=== PATIENT | male | born 1970 | race Hispanic/Latino ===

== ENCOUNTER 2021-08-27 13:07 | Emergency (ER) | payer MEDICAID ==
[~2021-08-27] VITALS: Ht 124.5 cm; Wt 88.5 kg
[2021-08-27 14:17] VITALS: BP 199/102
[2021-08-27] MEDS ORDERED: IBUPROFEN 600 MG TABLET PO ONE (14:30)
== END 2021-08-27 15:28 | disposition home or self-care (01) ==
LOC: EDH 13:07
DX: M19.042 Primary osteoarthritis, left hand (principal); E11.9 Type 2 diabetes mellitus without complications; E78.00 Pure hypercholesterolemia, unspecified; I10 Essential (primary) hypertension; Z79.1 Long term (current) use of non-steroidal anti-inflammatories (NSAID)
CPT/HCPCS: 73130

== ENCOUNTER 2023-07-27 09:15 | Emergency (ER) | payer MEDICAID ==
[~2023-07-27] VITALS: Ht 147.3 cm; Wt 90.7 kg
[2023-07-27 09:19] VITALS: BP 220/117; PULSE 71; RESP 16; O2SAT 98
[2023-07-27 10:44] LABS: BASOPHILS # (AUTO) 0.02 K/uL (0.00-0.20); BASOPHILS % (AUTO) 0.4 % (0.0-5.0); EOSINOPHILS # (AUTO) 0.18 K/uL (0.00-0.70); EOSINOPHILS % (AUTO) 3.6 % (0.0-8.0); HEMATOCRIT 43.5 % (42-54); IMMATURE GRANULOCYTE ABSOLUTE 0.02 K/uL (0-1); LYMPHOCYTES # (AUTO) 1.4 K/uL (1.0-4.8); LYMPHOCYTES % (AUTO) 28.5 % (21.0-51.0); MEAN CORPUSCULAR HEMOGLOBIN 27.4 pg (27.0-33.0); MEAN CORPUSCULAR HGB CONC 32.2 g/dL (32.0-36.0); MEAN CORPUSCULAR VOLUME 85.1 fL (79-99); MONOCYTES # (AUTO) 0.3 K/uL (0.1-1.0); MONOCYTES % (AUTO) 6.3 % (3.0-13.0); NEUTROPHILS # (AUTO) 3.1 K/uL (1.8-7.7); NEUTROPHILS % (AUTO) 60.8 % (40.0-77.0); PLATELET COUNT (AUTO) 153 K/uL (130-400); RED BLOOD CELL COUNT(AUTO) 5.11 MIL/uL (4.50-6.20); RED CELL DISTRIBUTION WIDTH 13.2 % (11.0-15.5); WHITE BLOOD COUNT (AUTO) 5.1 K/uL (4.8-10.8)
[2023-07-27 10:56] LABS: APPEARANCE,URINE TURBID (CLEAR); BILIRUBIN,URINE NEGATIVE (NEGATIVE); COLOR,URINE YELLOW (YELLOW); GLUCOSE, URINE (UA) 500 mg/dL (NEGATIVE); KETONES,URINE NEGATIVE (NEGATIVE); LEUKOCYTE ESTERASE ,URINE 500 Leu/uL (NEGATIVE); NITRATE,URINE NEGATIVE (NEGATIVE); OCCULT BLOOD,URINE MODERATE (NEGATIVE); PH,URINE 6.5 (5.0-8.0); PROTEIN,URINE 600 mg/dL (NEGATIVE); UROBILINOGEN,URINE 0.2 mg/dL (0.2-1.0)
[2023-07-27 10:57] LABS: ALBUMIN 2.3 g/dL (3.5-5.0); BILIRUBIN,TOTAL 0.6 mg/dL (0.2-1.0); CREATININE 1.3 mg/dL (0.5-1.5); POTASSIUM 4.4 mmol/L (3.5-5.1); TOTAL PROTEIN, SERUM 6.3 g/dL (6.0-8.3)
[2023-07-27 10:58] LABS: ADD UA MICROSCOPIC YES
[2023-07-27 11:09] LABS: BACTERIA,URINE RARE /HPF (None Seen); MUCUS,URINE RARE LPF (None Seen); NON-SQUAMOUS EPITHELIAL CELL 1 /HPF (0-2); SQUAMOUS EPITHELIAL CELL,UR RARE /HPF (0-2); TRANSITIONAL EPI CELLS,URINE RARE /HPF (None Seen); WBC CLUMP FEW /HPF (0-1); WBC,URINE TNTC /HPF (0-1)
[2023-07-27] MEDS ORDERED: CEPH500B PO (11:33)
[2023-07-27] MEDS: KETOROLAC 60 MG VIAL (30MG/ML) IM ONE (11:36)
[2023-07-27] MEDS: CEPHALEXIN 500 MG CAPSULE PO ONE (11:49)
== END 2023-07-27 11:54 | disposition home or self-care (01) ==
LOC: EDH 09:15
DX: N39.0 Urinary tract infection, site not specified (principal); E86.0 Dehydration; E11.9 Type 2 diabetes mellitus without complications; E78.00 Pure hypercholesterolemia, unspecified; I10 Essential (primary) hypertension
CPT/HCPCS: 99283; 80053; 85025; 87077; 87088; 87186; 81001; 36415; J1885

== ENCOUNTER 2023-11-21 08:49 | Emergency (ER) | payer MEDICAID ==
[~2023-11-21] VITALS: Ht 147.3 cm; Wt 86.2 kg
[~2023-11-21 08:49] MED LIST: CEPH500B PO
[2023-11-21 09:21] LABS: BASOPHILS # (AUTO) 0.03 K/uL (0.00-0.20); BASOPHILS % (AUTO) 0.6 % (0.0-5.0); EOSINOPHILS # (AUTO) 0.12 K/uL (0.00-0.70); EOSINOPHILS % (AUTO) 2.3 % (0.0-8.0); HEMATOCRIT 46.2 % (42-54); IMMATURE GRANULOCYTE ABSOLUTE 0.02 K/uL (0-1); LYMPHOCYTES # (AUTO) 1.6 K/uL (1.0-4.8); LYMPHOCYTES % (AUTO) 30.1 % (21.0-51.0); MEAN CORPUSCULAR HEMOGLOBIN 27.3 pg (27.0-33.0); MEAN CORPUSCULAR HGB CONC 32.9 g/dL (32.0-36.0); MEAN CORPUSCULAR VOLUME 83.1 fL (79-99); MONOCYTES # (AUTO) 0.3 K/uL (0.1-1.0); MONOCYTES % (AUTO) 5.8 % (3.0-13.0); NEUTROPHILS # (AUTO) 3.2 K/uL (1.8-7.7); NEUTROPHILS % (AUTO) 60.8 % (40.0-77.0); PLATELET COUNT (AUTO) 175 K/uL (130-400); RED BLOOD CELL COUNT(AUTO) 5.56 MIL/uL (4.50-6.20); RED CELL DISTRIBUTION WIDTH 13.2 % (11.0-15.5); WHITE BLOOD COUNT (AUTO) 5.2 K/uL (4.8-10.8)
[2023-11-21 09:37] LABS: CREATININE 1.4 mg/dL (0.5-1.5); POTASSIUM 4.7 mmol/L (3.5-5.1)
[2023-11-21 09:41] LABS: ALBUMIN 2.4 g/dL (3.5-5.0); BILIRUBIN,TOTAL 0.7 mg/dL (0.2-1.0); TOTAL PROTEIN, SERUM 6.7 g/dL (6.0-8.3)
[2023-11-21 10:10] LABS: APPEARANCE,URINE CLEAR (CLEAR); BILIRUBIN,URINE NEGATIVE (NEGATIVE); COLOR,URINE YELLOW (YELLOW); GLUCOSE, URINE (UA) >=1000 mg/dL (NEGATIVE); KETONES,URINE 5 mg/dL (NEGATIVE); LEUKOCYTE ESTERASE ,URINE NEGATIVE Leu/uL (NEGATIVE); NITRATE,URINE NEGATIVE (NEGATIVE); OCCULT BLOOD,URINE MODERATE (NEGATIVE); PROTEIN,URINE 600 mg/dL (NEGATIVE); UROBILINOGEN,URINE 0.2 mg/dL (0.2-1.0)
[2023-11-21 10:11] LABS: ADD UA MICROSCOPIC YES
[2023-11-21 10:19] LABS: BACTERIA,URINE RARE /HPF (None Seen); MUCUS,URINE RARE LPF (None Seen); SQUAMOUS EPITHELIAL CELL,UR RARE /HPF (0-2)
[2023-11-21 11:18] VITALS: BP 157/84; PULSE 79; RESP 16; O2SAT 99
[2023-11-21] MEDS ORDERED: FAMO20TA8 PO (11:40)
== END 2023-11-21 11:50 | disposition home or self-care (01) ==
LOC: EDH 08:49
DX: K80.20 Calculus of gallbladder without cholecystitis without obstruction (principal); E11.9 Type 2 diabetes mellitus without complications; E78.00 Pure hypercholesterolemia, unspecified; I10 Essential (primary) hypertension
CPT/HCPCS: 36415; 74176; 80053; 81001; 85025

== ENCOUNTER 2024-08-25 09:14 | Emergency (ER) | payer MEDICAID ==
[~2024-08-25] VITALS: Ht 147.3 cm; Wt 83.9 kg
[~2024-08-25 09:14] MED LIST changes: +FAMO20TA8 PO
[2024-08-25 09:16] VITALS: TEMP 98.4
--- NOTE | 2024-08-25 09:25 | NUR ---
PT JUST PLACED IN MY ED BED 13
--- NOTE | 2024-08-25 09:45 | ERN ---
General Chief Complaint: Other Problems Stated Complaint: RIGHT ARM AND LEG PAIN, Time Seen by MD: 09:16 Source: patient History of Present Illness Initial Comments PATIENT IS A 53-YEAR-OLD MALE COMING IN TO BE EVALUATED FOR RIGHT-SIDED BODY PAIN. PATIENT STATES IT HAS BEEN GOING ON FOR A YEAR. HIS PCP SAW HIM IN DIAGNOSED HIM WITH MUSCLE STRAIN. PATIENT ALSO STATES THAT HE HAS A RIGHT HIP WHICH WAS DIAGNOSED WITH AVASCULAR NECROSIS IN HIS PENDING SURGERY. Allergies: Coded Allergies: No Allergy Information Available (Verified Allergy, Unknown, 08/27/21) No Known Drug Allergies (Unverified Allergy, Unknown, 11/21/23) Home Meds Active Scripts Famotidine (Famotidine) 20 Mg Tablet, 20 MG PO BID, #14 TAB Prov:TRAVIS RUSSOP 11/21/23 Cephalexin Monohydrate (Keflex) 500 Mg Cap, 500 MG PO QID for 10 Days, #40 CAP 0 Refills Prov:HUGO OLSON Sr., MD 07/27/23 Past Medical History Past Medical History: Diabetes-Type II, High Cholesterol, Hypertension Medical History Other: GOUT Past Surgical History: Other Surgical History Other: RT WRIST Social History Social History: Lives with family ROS Dictation CONSTITUTIONAL: NO CHILLS, NO FEVER, NO WEAKNESS, NO DIAPHORESIS, NO MALAISE. HEAD/FACE: NO SIGNS OF TRAUMA. EENT: NO EYE PAIN, NO BLURRED VISION, NO TEARING, NO DOUBLE VISION, NO EAR PAIN, NO EAR DISCHARGE, NO NOSE PAIN, NO NASAL CONGESTION, NO THROAT PAIN, NO THROAT SWELLING, NO MOUTH PAIN. RESPIRATORY: NO COUGH, NO ORTHOPNEA, NO SOB, NO STRIDOR, NO WHEEZING. CARDIOVASCULAR: NO CHEST PAIN, NO EDEMA, NO PALPITATIONS, NO SYNCOPE. GASTROINTESTINAL/ABDOMINAL: NO ABDOMINAL PAIN, NO CONSTIPATION, NO DIARRHEA, NO NAUSEA, NO VOMITING. GENITOURINARY: NO ABNORMAL DISCHARGE, NO DYSURIA, NO FREQUENT URINATION, NO HEMATURIA. NO COMPLAINTS OF PAIN IN THE GENITALS. MUSCULOSKELETAL: NO BACK PAIN, NO GOUT, JOINT PAIN, NO JOINT SWELLING, MUSCLE PAIN, NO MUSCLE STIFFNESS, NO NECK PAIN. INTEGUMENTARY: NO CHANGE IN COLOR, NO CHANGE IN HAIR/NAILS, NO DRYNESS, NO LESION, NO LUMPS, NO RASH. NEUROLOGICAL/PSYCH: NO ANXIETY, NOT DEPRESSED, NO EMOTIONAL PROBLEM, NO HEADACHE, NO NUMBNESS, NO PRE-EXISTING DEFICIT, NO HISTORY OF SEIZURES, NO TREMORS, NO WEAKNESS. HEMATOLOGIC/LYMPHATIC: NOT ANEMIC, NO HISTORY OF BLOOD CLOTS, NO APPARENT BLEEDING, NO BRUISING, GLANDS NOT SWOLLEN. ALL SYSTEMS NEGATIVE, EXCEPT NOTED. Physical Exam Physical Exam Dictation VITAL SIGNS: REVIEWED. GENERAL APPEARANCE: ALERT, ORIENTED X3, NO ACUTE DISTRESS, OBESE. HEAD AND FACE: NON-TRAUMATIC. EYES: PERRL, PINK CONJUNCTIVAS, EYELID NO TRAUMA, ANTERIOR CHAMBER CLEAR. EARS: PINNAS INTACT AND NO SIGNS OF TRAUMA OR ERYTHEMA. EAR CANALS CLEAR AND NO DISCHARGE. TMS NO ERYTHEMA. NOSE: NO DISCHARGE, NO BLEEDING. OROPHARYNX: MOUTH NORMAL, TEETH NO CARIES, TONGUE PINK. PHARYNX CLEAR, NO ERYTHEMA. TONSILS NO EXUDATES, NO ABSCESSES NOTED. MUCOUS MEMBRANE MOIST. NECK: SUPPLE, NON-TENDER, NO THYROMEGALY, NO MASSES, NO JVD, NO BRUITS. BREAST: DEFERRED. CHEST: NO TENDERNESS, NO CREPITUS, NO PARADOXICAL MOVEMENT, NO RETRACTIONS. LUNGS: CLEAR, WELL-VENTILATED, SYMMETRIC, NO RALES, NO WHEEZING, NO RHONCHI, NO STRIDOR, GOOD BREATH SOUNDS BILATERALLY. HEART: REGULAR RATE, REGULAR RHYTHM, NO MURMUR, NO GALLOPS. VASCULAR: NO PERIPHERAL EDEMA. ABDOMEN: SOFT, POSITIVE BOWEL SOUNDS, NONDISTENDED, NO GUARDING, NONTENDER, NO REBOUND, NO MASSES NO HEPATOMEGALY, NO SPLENOMEGALY, NO LUNA'S SIGN, NO HERNI . RECTAL: DEFERRED. GENITAL: DEFERRED. NEUROLOGICAL: NORMAL SPEECH, GROSS MOTOR FUNCTION INTACT, GROSS SENSORY FUNCTION INTACT. MUSCULOSKELETAL: NECK LATERAL RIGHT TENDER, FULL RANGE OF MOTION, BACK NONTENDER, FULL RANGE OF MOTION. EXTREMITIES: NONTENDER, FULL RANGE OF MOTION. RIGHT HIP PAIN, RIGHT TRAPEZIUS MUSCLE PAIN SKIN: COLOR PINK, DRY, NO TURGOR, NO RASH, NO LACERATIONS, NO ABRASIONS, NO CONTUSIONS. LYMPHATICS: DEFERRED. Results Laboratory and Microbiology Labs Reviewed?: Yes EKG/XRAY/US/CT/MRI EKG Comment CHEST X-RAY-NAD RIGHT SHOULDER [id number] CHANGES MDM MDM: DIFFERENTIAL DIAGNOSIS: CHRONIC PAIN, FIBROMYALGIA, AVASCULAR NECROSIS OF THE RIGHT HIP 53-YEAR-OLD MALE COMING IN TO BE EVALUATED FOR CHRONIC RIGHT SHOULDER RIGHT HIP PAIN. PATIENT WAS DIAGNOSED WITH AVASCULAR NECROSIS OF THE RIGHT HIP. PATIENT STATES THAT THIS PAIN HAS BEEN ONGOING FOR ONE YEAR. PATIENT RECEIVED ANTI-INF LAMMATORIES CHEST X-RAY IMAGES WELL RIGHT SHOULDER X-RAY. PATIENT WILL BE DISCHARGED IN STABLE CONDITION IN HIS BICYCLE FOR FOLLOW UP PCP AND/OR MARKETING DEVELOPMENT REPRESENTATIVE FOR ONGOING MANAGEMENT OF CHRONIC HIP PAIN AND CHRONIC SHOULDER PAIN ED Course Orders Procedure Category Date Status Time Orphenadrine Citrate PHA 08/25/24 Complete (Norflex) 10:00 Triamcinolone Acet PHA 08/25/24 Complete 40mg/Ml 1ml (Kenalog 10:00 Chest 1vw RAD 08/25/24 Taken 09:46 Shoulder Comp 2+Vws Rt RAD 08/25/24 Taken 09:46 Current Medications Medications (Trade) Dose Ordered Sig/Willard Route PRN Reason Start Time Stop Time Status Last Admin Dose Admin Orphenadrine Citrate (Norflex) 60 mg ONCE ONCE IM 08/25/24 10:00 08/25/24 10:01 DC 08/25/24 09:53 Triamcinolone Acetonide (Kenalog 40) 40 mg ONCE ONCE IM 08/25/24 10:00 08/25/24 10:01 DC 08/25/24 09:53 Vital Signs Date Time Temp Pulse Resp B/P (MAP) Pulse Ox O2 Delivery O2 Flow Rate FiO2 08/25/24 09:16 98.4 69 18 187/84 98 Room Air DX & DISP Disposition: Discharge Departure Impression: Primary Impression: Fibromyalgia Additional Impressions: Chronic shoulder pain, Chronic hip pain Condition: Stable Scripts Naproxen (Naproxen) 375 Mg Tablet.dr 375 MG PO BID for 7 Days, #14 TAB Prov: SANDRO BRUSH MD 08/25/24 Methocarbamol (Robaxin) 750 Mg Tab 1 TAB PO BID for 7 Days, #14 TAB 0 Refills Prov: SANDRO BRUSH MD 08/25/24 Additional Instructions: FOLLOW-UP WITH PRIMARY CARE PROVIDER IN 1 TO 2 DAYS. TAKE MEDICATIONS DIRECTED HERE IN THE EMERGENCY ROOM. OKAY TO CONTINUE HOME MEDICATIONS UNLESS OTHERWISE DISCUSSED DURING YOUR VISIT IN THE EMERGENCY ROOM TODAY. RETURN TO YOUR NEAREST EMERGENCY ROOM IF SYMPTOMS WORSEN OR IF THERE IS NO IMPROVEMENT. CALL 911 IF YOU NEED IMMEDIATE ASSISTANCE. TAKE TYLENOL [id number] NEEDED AND IF NO CONTRAINDICATIONS ARE PRESENT. INCREASE ORAL HYDRATION. A WOUND CULTURE OR URINE CULTURE WAS ORDERED HERE IN THE EMERGENCY ROOM DEPARTMENT PLEASE FOLLOW-UP WITH PRIMARY CARE PROVIDER AND ADVISE THEM TO GET REPEAT PORTS FROM OUR FACILITY. IF YOU HAD ANY LANCE WRAP/SPLINTS THAT WERE APPLIED HERE, PLEASE DO NOT REMOVE THEM UNTIL YOU SEE YOUR PRIMARY CARE OR SPECIALTY. REFERRALS: Referrals: MEE POLLOCK (PCP) SHANI TAYLOR MD Time of Disposition: 10:24 SANDRO BRUSH MD Aug 25, 2024 09:45
[2024-08-25] MEDS: TRIAMCINOLONE ACETONIDE 40 MG/ML 1ML VIAL IM ONE (09:53)
[2024-08-25] MEDS: ORPHENADRINE 60MG/2ML IM ONE (09:53)
[2024-08-25] MEDS ORDERED: NAPR-1505 PO (10:25)
[2024-08-25] MEDS ORDERED: METH-662 PO (10:25)
--- NOTE | 2024-08-25 10:30 | HMCIMG ---
SHOULDER COMP 2+VWS RT HISTORY: Pain COMPARISON: None TECHNIQUE: 2 images of right shoulder were obtained. FINDINGS: There are loose bodies noted in the axillary pouch. Right glenohumeral joint space narrowing is seen. There is no acute displaced fracture or dislocation. Degenerative changes are seen. IMPRESSION: 1. Findings as described above.
--- NOTE | 2024-08-25 11:05 | HMCIMG ---
CHEST 1VW HISTORY: Pain COMPARISON: None FINDINGS: A frontal projection of the chest was obtained. No acute pulmonary infiltrates is seen. The heart is normal in size. Prominent interstitial markings are seen. No evidence of aortic calcification is seen. IMPRESSION: 1. No acute pulmonary infiltrate is seen.
[2024-08-25 11:08] VITALS: BP 146/72; PULSE 76; RESP 13; O2SAT 97
== END 2024-08-25 11:09 | disposition home or self-care (01) ==
LOC: EDH 09:14
DX: M79.7 Fibromyalgia (principal); G89.29 Other chronic pain; M25.551 Pain in right hip; M25.511 Pain in right shoulder; E11.9 Type 2 diabetes mellitus without complications; E78.00 Pure hypercholesterolemia, unspecified; I10 Essential (primary) hypertension; E66.9 Obesity, unspecified; Z79.899 Other long term (current) drug therapy; Z68.30 Body mass index [BMI] 30.0-30.9, adult
CPT/HCPCS: 99284; 71045; 73030; 96372 ×2; J3301; J2360

== ENCOUNTER 2025-07-01 16:11 | Emergency (ER) | payer MEDICAID ==
[~2025-07-01] VITALS: Ht 147.3 cm; Wt 90.7 kg
[~2025-07-01 16:11] MED LIST changes: +METH-662 PO; +NAPR-1505 PO
--- NOTE | 2025-07-01 17:35 | HMCIMG ---
EXAM: CR right ankle, 2 View. CLINICAL HISTORY: SWELLING COMPARISON: None provided. FINDINGS: BONES: Bones are markedly osteopenic. No acute fracture or aggressive appearing osseous lesion. Incidental os trigonum. JOINTS: Mild subtalar joint osteoarthritis. No dislocation. No radiographic evidence of a joint effusion. SOFT TISSUES: Soft tissue edema within the distal right leg and about the ankle. IMPRESSION: 1. No acute osseous injury. 2. Soft tissue edema of the distal right leg and ankle. /[place]
[2025-07-01] MEDS ORDERED: COLC0.6C3 PO (18:41)
--- NOTE | 2025-07-01 18:42 | ERN ---
ED Note History of Present Illness Stated Complaint: RIGHT ANKLE PAIN Chief Complaint: Ankle Problem Time Seen by MD: 16:14 Time Seen by Midlevel: 16:15 Dictation: 54-year-old male coming in with complaints of right ankle pain no trauma. Patient states he has a history of gout and feels like his gout flare-up only he usually gets a flare-up on his hand now is on his right ankle. Denies any recent injuries to that extremity. Allergies: Coded Allergies: No Allergy Information Available (Verified Allergy, Unknown, 08/27/21) No Known Drug Allergies (Unverified Allergy, Unknown, 11/21/23) Home Meds Active Scripts Naproxen (Naproxen) 375 Mg Tablet.dr, 375 MG PO BID for 7 Days, #14 TAB Prov:SANDRO BRUSH MD 08/25/24 Methocarbamol (Robaxin) 750 Mg Tab, 1 TAB PO BID for 7 Days, #14 TAB 0 Refills Prov:SANDRO BRUSH MD 08/25/24 Famotidine (Famotidine) 20 Mg Tablet, 20 MG PO BID, #14 TAB Prov:TRAVIS RUSSO 11/21/23 Cephalexin Monohydrate (Keflex) 500 Mg Cap, 500 MG PO QID for 10 Days, #40 CAP 0 Refills Prov:HUGO OLSON Sr., MD 07/27/23 Past Medical History Past Medical History: Diabetes-Type II, Hypertension, Other Additional Past Medical Hx: GOUT Surgical History: None Surgical History Other: RT WRIST Social History: Lives with family Review of System Dictation Constitutional: Negative for fever,chills, and weight loss Eyes: Negative for injury, pain,redness, and discharge ENT: Negative for injury,pain or swelling Cardiovascular: Negative for chest pain, palpitations, and edema Respiratory: Negative for shortness of breath, cough, and wheezing, Abdomen/GI: Negative for abdominal pain, nausea, vomiting, diarrhea, and constipation Back: Negative for injury and pain : Negative for injury, bleeding and discharge MS/Extremity: Negative for injury and deformity, pain to the right ankle Skin: Negative for rash, and discoloration Neuro: Negative for headache, weakness, numbness, tingling, and seizure Psych: Negative for suicide ideation, homicidal ideation, and hallucinations Review of Systems: was completed Initial Vital Sign VS Vital Signs Date Time Temp Pulse Resp B/P (MAP) Pulse Ox O2 Delivery O2 Flow Rate FiO2 07/01/25 16:14 98.2 93 16 159/80 98 Room Air 0 07/01/25 16:47 21 Physical Exam Dictation General: awake, alert, NAD Head/Face: Normocephalic, atraumatic Eyes: PERRL, EOMI, vision at baseline ENT: oral cavity clear, TMs clear, no signs of infection Neck: Trachea midline, supple, no nuchal rigidity Cardiovascular: RRR, normal S1/S2, No MRGs, no JVD Respiratory: CTAB, no respiratory distress, No rales or wheezes Abdomen: Soft, non-tender, non-distended, normal bowel sounds, no guarding or rebound. Skin: Warm, dry, normal turgor, no rash MS/Extremity: Pulses equal, no cyanosis, neurovascular intact, FROM, pain on movement to the right ankle, ankle is minimally swollen with erythema and warmth to touch. There is no open wounds or any signs of infection. Neuro: COAx4, GCS 15, strength 5/5, CN 2-12 intact, normal cerebellar exam, normal gait, Psych: Normal behavior, mood, and affect normal ED Course ED Course Orders Procedure Category Date Status Time Colchicine 0.6mg Tab PHA 07/01/25 Complete (Colchicine 0.6mg T 16:24 Ankle 2vws Rt RAD 07/01/25 Resulted 16:27 Colchicine 0.6mg Tab PHA 07/01/25 Complete (Colchicine 0.6mg T 17:53 Us Abdominal Complete US 07/01/25 Taken 17:53 Current Medications Medications (Trade) Dose Ordered Sig/Willard Route PRN Reason Start Time Stop Time Status Last Admin Dose Admin Colchicine (COLCHicine 0.6mg TAB) 0.6 mg ONCE STAT PO 07/01/25 17:53 07/01/25 17:58 DC 07/01/25 18:10 Colchicine (COLCHicine 0.6mg TAB) 1.2 mg ONCE STAT PO 07/01/25 16:24 07/01/25 16:27 DC 07/01/25 16:32 Vital Signs Date Time Temp Pulse Resp B/P (MAP) Pulse Ox O2 Delivery O2 Flow Rate FiO2 07/01/25 18:00 98.2 88 18 156/84 98 Room Air* 0 21 07/01/25 16:47 88 18 165/85 98 Room Air* 0 21 07/01/25 16:14 98.2 93 16 159/80 98 Room Air 0 Medical Decision Making MDM MDM: 54-year-old male coming in with complaints of right ankle pain no trauma. Patient states he has a history of gout and feels like his gout flare-up only he usually gets a flare-up on his hand now is on his right ankle. Denies any recent injuries to that extremity. X-ray shows mild soft tissue swelling in the ankle, after initial colchicine dose, swelling has a subsided minimally, better range of motion. Now patient states he thinks he is having pain to that area because he has a hernia in his umbilical area. Patient states he feels tightness every time he lifts up his leg. Ultrasound of the abdomen was then ordered. Patient states the feeling of the pulling of the leg in the tightness has been going on for one year. Ultrasound the abdomen is within normal limits other than mild fatty liver disease. These findings where they discussed with the patient. Patient stated he has not appointment on the of this month with the GI for colonoscopy and endoscopy. Discussed with the patient he is to keep the appointment and to return to the hospital if any worsening symptoms. Patient verbalized understanding, answered all questions. Differential diagnosis: Gout, cellulitis Rationale: Tests considered and ordered secondary to shared decision making include: Previous outside records reviewed: Old ER visits. Risk of complication and/or morbidity or mortality of patient management: None Medications-Per medication reconciliation Need for hospitalization: Patient does not meet criteria for hospitalization. Need for emergency major/minor surgery: No There are no social concerns with this patient. Prescription drug management Prescriptions will include symptomatic care Patient's prior external medical records from other ER visits were reviewed by me as indicated. Prior testing and results from previous visits were reviewed. Prior tests were taken into account with medical decision making and resource utilization, independent historian/historians were used to obtain complete medical history. I independently interpreted the test that were performed, results were reviewed by me and considered findings on radiology if ordered. Medical management and examination interpretation discussions were had by me with other qualified healthcare professionals as indicated for the patient's care. DX & DISP Disposition: Discharge Departure Impression: Primary Impression: Gout attack Condition: Stable Scripts Colchicine (Colchicine) 0.6 Mg Capsule 1 CAP PO DAILY for 7 Days, #7 CAP 0 Refills Prov: PETER,GWEN DIGITAL IMAGING TECHNICIAN 07/01/25 Additional Instructions: Please follow up with your GI as scheduled. Return to the hospital as needed. Referrals: MEE POLLOCK (PCP) Time of Disposition: 18:42 I have reviewed the case, and I agree with, Diagnosis and Plan GWEN PETER NP Jul 01, 2025 18:42
--- NOTE | 2025-07-01 19:32 | NUR ---
EMS WAS CALLED FOR RETURN TRIP HOME PT STATES HE IS UNABLE TO SIT, STAND, OR AMBULATE AT THIS TIME DUE TO PAIN TO HIS BACK AND LOWER EXTREMITIES. PT ALSO REPORTS INCREASING LOWER EXTREMITY WEAKNESS THAT IMPACTED HIS MOBILITY
--- NOTE | 2025-07-01 19:34 | HMCIMG ---
EXAMINATION: US Abdomen Limited CLINICAL HISTORY: Patient presents with abdominal pain. COMPARISON: None. TECHNIQUE: Limited abdominal ultrasound performed with grayscale imaging. Evaluation limited due to overlying bowel gas in portions of the exam. FINDINGS: LIVER: The liver measures 14.6 cm in craniocaudal dimension and demonstrates mild increased echogenicity, consistent with hepatic steatosis. No focal hepatic lesion identified. GALLBLADDER: The gallbladder is surgically absent, consistent with cholecystectomy. COMMON BILE DUCT (CBD): The common bile duct measures 3 mm, within normal limits for post-cholecystectomy status. PANCREAS: The pancreas is obscured by overlying bowel gas and cannot be adequately evaluated. RIGHT KIDNEY: The right kidney measures 10.3 x 5.6 x 5.5 cm. Corticomedullary differentiation is preserved. No evidence of hydronephrosis or renal mass. LEFT KIDNEY: The left kidney measures 10.6 x 4.8 x 5.2 cm. Corticomedullary differentiation is preserved. No evidence of hydronephrosis or renal mass. SPLEEN: The spleen measures 10.4 cm in length, within normal limits. Echotexture is homogeneous without focal lesion. INFERIOR VENA CAVA (IVC): The IVC is well visualized and compressible. AORTA: The proximal abdominal aorta is visualized and appears normal in caliber. The distal aorta is obscured by bowel gas and cannot be fully assessed. IMPRESSION: Status post cholecystectomy. Mild hepatic steatosis. Normal common bile duct caliber. Pancreas and distal aorta not fully visualized due to bowel gas. /[place]
[2025-07-01 21:45] VITALS: BP 144/71; PULSE 78; RESP 18; TEMP 98.2; O2SAT 98
== END 2025-07-01 21:52 | disposition home or self-care (01) ==
LOC: EDH 16:11
DX: M10.9 Gout, unspecified (principal); E11.9 Type 2 diabetes mellitus without complications; I10 Essential (primary) hypertension; Z90.49 Acquired absence of other specified parts of digestive tract
CPT/HCPCS: 73600; 76700; 99285